=== PATIENT | male | born 1950 | race Caucasian/White ===

== ENCOUNTER 2017-07-21 20:34 | Emergency (ER) | payer MEDICARE, OTHER ==
[2017-07-21 21:29] LABS: BASOPHILS 0.5 % (0-2); EOSINOPHILS 2.3 % (0-7); HEMATOCRIT 44.4 % (42.0-54.0); HEMOGLOBIN 14.9 g/dL (13.5-17.5); IMMATURE GRANULOCYTES 0.2 % (0-5); LYMPHOCYTES 27.7 % (15-50); MCH 29.2 pg (26.0-34.0); MCHC 33.6 g/dL (31.0-37.0); MCV 87.1 fL (80.0-100.0); MONOCYTES 12.5 % (2-11); NEUTROPHILS 56.8 % (40-80); PLATELET COUNT 218 10x3/uL (130-400); RDW 12.7 % (11.5-14.5); WBC 6.1 10x3/uL (4.8-10.8)
[2017-07-21 21:43] LABS: ALBUMIN 3.6 g/dL (3.4-5.0); ANION GAP 13.9 mmol/L (8-16); BILIRUBIN - TOTAL 0.29 mg/dL (0.2-1.3); CALCIUM 8.7 mg/dL (8.5-10.1); CARBON DIOXIDE 24.9 mmol/L (21.0-32.0); CREATININE - SERUM 1.5 mg/dL (0.6-1.3); POTASSIUM - SERUM 3.8 mmol/L (3.5-5.1); PROTEIN - SERUM 7.2 g/dL (6.4-8.2)
== END 2017-07-21 22:08 | disposition home or self-care (01) ==
LOC: D.ER 20:34
PROVIDERS: Physician Assistant Medical
DX: S50.862A Insect bite (nonvenomous) of left forearm, initial encounter (principal); W57.XXXA Bitten or stung by nonvenomous insect and other nonvenomous arthropods, initial encounter; Y93.89 Activity, other specified; Y92.029 Unspecified place in mobile home as the place of occurrence of the external cause; I10 Essential (primary) hypertension; N40.0 Benign prostatic hyperplasia without lower urinary tract symptoms

== ENCOUNTER 2017-10-23 10:08 | Day surgery (SDC) | payer MEDICARE, OTHER ==
--- NOTE | ~2017-10-23 | OP ---
PATIENT NAME: DEIDRE VILLAGOMEZ MEDICAL RECORD: [id number] :48 LOCATION:D.OPS ADMISSION DATE: SURGEON: GISELA ALBERT MD DATE OF OPERATION: 10/23/2017 PREOPERATIVE DIAGNOSIS: Suspicious hepatic flexure polyps times 2. POSTOPERATIVE DIAGNOSIS: Suspicious hepatic flexure polyps times 2. PROCEDURES: 1. Total colonoscopy to cecum. 2. Colonic polypectomies times 2 utilizing the argon plasma singing teacher, which is a radiofrequency type of ablation of a benign colonic process. SURGEON: Gisela Albert MD HAM PUMPER: None. BLOOD LOSS: Minimal. ANESTHESIA: General. DATE OF PROCEDURE: 10/23/2017 The risks, possible complications, and alternatives to the procedure were explained to the patient. He elects to proceed. OPERATIVE COURSE: The patient was conveyed to the operating room electively on 10/23/2017. General anesthesia was induced by the anesthesia staff. The patient was placed in the Bowser position. A digital rectal examination was performed. A colonoscope was inserted through the anus. It was easily advanced to the cecum. Upon withdrawal, I irrigated and aspirated extensively. The prep was inadequate. Two polyps were noted at the hepatic flexure. The proximal most polyp had a clip within the polyp that had been placed for hemostasis. Multiple cold biopsies of both polyps were performed. I then ablated the polypoid base with the argon plasma singing teacher. I am particularly concerned about the proximal most polyp as it had a very firm center and may represent a malignancy. I then slowly withdrew the endoscope. The pullback was greater than an 18-minute pullback. I dragged the folds. A retroflexed view was obtained in the rectum. I then unretroflexed the scope and removed it under direct vision. I will see the patient in my office in 2-3 weeks. If there is no evidence of malignancy, I will plan for the next colonoscopy with the argon plasma singing teacher to take place in 1 year. TRANSINT:[id number] Voice Confirmation ID: [id number] DOCUMENT ID: [id number] OPERATIVE REPORT [id number] DEIDRE VILLAGOMEZ GISELA ALBERT MD at 1607 CC: BLANCHE BUENO MD and SOLO VEGA DO [id number] DICTATION DATE: 10/23/17 1620 DRY END TESTER: 10/23/17 1935 [facility] 10/23/17 [facility] [address] [place] [address]
[2017-10-23 11:53] LABS: HEMATOCRIT 47.1 % (42.0-54.0); HEMOGLOBIN 16.2 g/dL (13.5-17.5); MCH 29.1 pg (26.0-34.0); MCHC 34.4 g/dL (31.0-37.0); MCV 84.7 fL (80.0-100.0); MEAN PLATELET VOLUME 7.9 fL (7.4-10.4); RBC 5.56 10x6/uL (4.20-6.10); RDW 13.3 % (11.5-14.5); WBC 8.3 10x3/uL (4.8-10.8)
[2017-10-23 13:49] VITALS: BP 135/82; BMI 26.5
[2017-10-23] MEDS ORDERED: FLOMAX0.4 MG PO (14:05)
[2017-10-23] MEDS ORDERED: LEVOTHYROXINE100 MCG PO (14:05)
[2017-10-23] MEDS ORDERED: NORVASC10 MG PO (14:06)
[2017-10-23] MEDS ORDERED: LOPID600 MG PO (14:06)
[2017-10-23] MEDS ORDERED: FLUTICASONE PRO16 GM NASAL (14:06)
[2017-10-23] MEDS ORDERED: LOTENSIN40 MG PO (14:07)
[2017-10-23] MEDS ORDERED: TEMAZEPAM30 MG PO (14:07)
== END 2017-10-23 17:40 | disposition home or self-care (01) ==
LOC: D.OPS 10:08 → D.PAN 12:15 → D.OPS 12:30
PROVIDERS: Anesthesiology
DX: D12.3 Benign neoplasm of transverse colon (principal); Z01.812 Encounter for preprocedural laboratory examination

== ENCOUNTER 2018-06-29 21:11 | Outpatient (CLI) | payer MEDICARE, OTHER ==
[~2018-06-29] VITALS: Ht 180.3 cm; Wt 93.8 kg
[2018-06-29] VITALS (8 sets, daily range): BP systolic 102–171; BP diastolic 62–88
--- NOTE | ~2018-06-29 | HEMODYNAMI ---
PATIENT:DEIDRE VILLAGOMEZ MEDICAL RECORD: [id number] : 48 LOCATION:[place] [address] ADMISSION DATE: 06/30/18 Generatedon:06/30/201811:13 Patient name: DEIDRE VILLAGOMEZ Patient #: [id number] SSN: : 1950 Date of study: 06/30/2018 Page: Of Hemodynamic Procedure Report Patient Data Patient Demographics Procedure consent was obtained First Name: DEIDRE Gender: Male Last Name: DAHLIA : 1950 Middle Initial: T Age: 68 year(s) Patient #: [id number] Race: Unknown Additional ID: [id number] Contact details Address: [address] State: [place] City: [place] Zip code: [address] Past Medical History Allergies: No known allergies Admission Admission Data Admission Date: 06/30/2018 Admission Time: 0:42 Admit Source: Other Room #: [facility] Procedure Procedure Types Cath Procedure Diagnostic Procedure LHC LH w/Coronaries Sedation Charges Moderate Sedation up to 15 minutes PCI Procedure Coronary Stent Coronary Stent Initial Procedure Description Procedure Date Procedure Date: 06/30/2018 Procedure Start Time: 10:51 Procedure End Time: 11:12 Procedure Staff Name Function Abhijit Yeung MD Performing Physician Jonathan Morris RT Monitor Rena Rajput RT Scrub Rowena Hernandez RN Nurse Deep Locke RN Computer Assistant Procedure Data Cath Procedure Fluoroscopy Diagnostic fluoroscopy Total fluoroscopy Time: 6.4 time: 6.4 min min Diagnostic fluoroscopy Total fluoroscopy dose: 839 dose: 839 mGy mGy Contrast Material Contrast Material Type Amount (ml) Isovue 300 117 Entry Location Entry Primary Successful Side Size Upsize Upsize Entry Closure Peña ccessful Closure Location (Fr) 1 (Fr) 2 (Fr) Remarks Device Remarks Radial Right 6 Fr Mechanical artery Short Compression Estimated blood loss: 10 ml Diagnostic catheters Device Type Used For End Catheter Placement DIAGNOSTIC [place] 110cm 5 Procedure Fr catheter (010093) Procedure Complications No complications Procedure Medications Medication Administration Route Dosage 0.9% NaCl I.V. 100 ml/hr Oxygen etCO2 Nasal cannula 2 l/min Lidocaine 2% added to field 20 Heparin Flush Bag added to field 2 bags (1000units/500ml NS) Radial Cocktail added to field 1 syringe (Verapomil 2mg/Nitro 400mcg/Heparin 1500units) Versed I.V. 2 mg Fentanyl I.V. 50 mcg Versed I.V. 2 mg Fentanyl I.V. 50 mcg Heparin Bolus I.V. 4000 units Versed I.V. 1 mg Plavix P.O. 75 mg Hemodynamics Rest Heart Rate: 75 (bpm) Snapshots Pre Cath Intra NCS Post Cath Vital Signs Time Heart Resp SPO2 etCO2 NIBP (mmHg) Rhythm Pain Sedation Rate (ipm) (%) (mmHg) Status Level (bpm) 10:22:02 86 16 97 34 155/104(135) NSR 0 (11) 10(A) , No pain 10:26:30 90 15 98 36 168/100(126) NSR 0 (11) 10(A) , No pain 10:30:48 77 12 97 33.5 145/88(120) NSR 0 (11) 10(A) , No pain 10:35:10 69 16 96 32.7 129/83(107) NSR 0 (11) 10(A) , No pain 10:39:26 76 16 95 26 134/81(103) NSR 0 (11) 10(A) , No pain 10:43:39 71 14 97 27.5 118/80(102) NSR 0 (11) 10(A) , No pain 10:47:55 74 14 96 27.6 131/79(105) NSR 0 (11) 10(A) , No pain 10:52:17 72 14 95 32 133/74(115) NSR 0 (11) 10(A) , No pain 10:56:28 76 15 96 33.5 97/69(89) NSR 0 (11) 10(A) , No pain 11:00:34 80 15 97 31.2 114/73(91) NSR 0 (11) 10(A) , No pain 11:04:46 78 16 97 29 117/80(103) NSR 0 (11) 10(A) , No pain 11:09:00 78 15 95 31.2 121/76(97) NSR 0 (11) 10(A) , No pain Medications Time Medication Route Dose Verified Delivered Reason Not es Effectiveness by by 10:18:25 0.9% NaCl I.V. 100 Abhijit Rowena used for ml/hr Gamal Hernandez him tech 10:18:32 Oxygen etCO2 2 l/min Abhijit Rowena used for Nasal Gamal Hernandez procedure cannula RN 10:18:38 Lidocaine 2% added 20ml Abhijit Abhijit for local to vial Gamal Yeung MD anesthetic field 10:18:44 Heparin Flush added 2 bags Abhijit Abhijit used for Bag to Gamal Yeung MD procedure (1000units/500ml field NS) 10:24:43 Radial Cocktail added 1 Abhijit Abhijit used for (Verapomil to syringe Gamal Yeung MD procedure 2mg/Nitro field 400mcg/Heparin 1500units) 10:45:48 Versed I.V. 2 mg Abhijit Rowena for sedation Gamal Hernandez RN 10:45:54 Fentanyl I.V. 50 mcg Abhijit Rowena for sedation Gamal Hernandez RN 10:51:58 Versed I.V. 2 mg Abhijit Rowena for sedation Gamal Hernandez RN 10:52:03 Fentanyl I.V. 50 mcg Abhijit Rowena for sedation Gamal Hernandez RN 10:57:16 Heparin Bolus I.V. 4000 Abhijit Rowena for juan miguel ified units Gamal Hernandez anticoagulation with Dr. ANGELES Yeung 11:00:27 Versed I.V. 1 mg Abhijit Rowena for sedation Gamal Hernandez RN 11:05:35 Plavix P.O. 75 mg Abhijit Rowena for Gamal Hernandez antiplatelet RN therapy Procedure Log Time Note 10:12:11 Informed consent obtained and on chart 10:12:14 Admit Source: Other 10:12:32 Diagnostic Cath status Elective 10:12:33 Deep Locke RN sent for patient. Start room use. 10:12:34 Time tracking: Regular hours (M-F 7:00 - 5:00) 10:12:38 Plan of Care:Hemodynamics will remain stable., Cardiac rhythm will remain stable., Comfort level will be maintained., Respiratory function will remain adequate., Patient/ family verbilizes understanding of procedure., Procedure tolerated without complication., Recovers from procedure without complications.. 10:13:47 H&P Date Dictated: 06/30/2018 Within 30 days and on chart.. 10:15:06 Patient received from Med II to CCL 1 Alert and oriented. Tansferred to table in Supine position. 10:15:07 Warm blankets applied, and katarzyna hugger turned on for patient comfort. 10:15:08 Correct patient and procedure confirmed by team. 10:15:09 ECG and BP/O2 sat monitors applied to patient. 10:18:25 0.9% NaCl 100 ml/hr I.V. was administered by Rowena Hernandez RN; used for procedure; 10:18:32 Oxygen 2 l/min etCO2 Nasal cannula was administered by Rowena Hernandez RN; used for procedure; 10:18:38 Lidocaine 2% 20ml vial added to field was administered by Abhijit Yeung MD; for local anesthetic; 10:18:44 Heparin Flush Bag (1000units/500ml NS) 2 bags added to field was administered by Abhijit Yeung MD; used for procedure; 10:20:37 Vital chart was started 10:22:32 Full Disclosure recording started 10:24:43 Radial Cocktail (Verapomil 2mg/Nitro 400mcg/Heparin 1500units) 1 syringe added to field was administered by Abhijit Yeung MD; used for procedure; 10:33:09 Baseline sample Acquired. 10:33:12 Rhythm: sinus rhythm 10:33:47 Pre-procedure instructions explained to patient. 10:33:47 Pre-op teaching completed and patient verbalized understanding. 10:33:49 Family in patients room. 10:33:51 Patient NPO since Midnight. 10:33:56 Patient allergic to No known allergies 10:33:58 Is the patient allergic to Iodine/contrast media? No. 10:33:59 Is patient on blood thinner?Yes 10:34:01 ACC The patient was administered the following blood thiners within the last 24 hours: ACCPlavix 10:34:03 Patient diabetic? No. 10:34:06 Previous problem with sedation/anesthesia? No ? 10:34:07 Snore? Yes 10:34:10 Sleep apnea? Yes 10:34:10 Deviated septum? No 10:34:11 Opens mouth fully? Yes 10:34:12 Sticks out tongue? Yes 10:34:14 Airway obstruction? No ? 10:34:16 Dentures? No ? 10:34:19 Pre procedure: right dorsailis pedis pulse 2+ Normal; easily identifiable; not easily obliterated 10:34:21 Modified Bart's test Ulnar < 7 seconds 10:34:22 Patient pain scale 0/10 ?. 10:34:27 IV patent on arrival in left antecubital with 0.9% NaCl at [facility]. 10:35:00 Lab Result : BUN 23 mg/dl 10:35:00 Lab Result : Hemoglobin 15.4 g/dl 10:35:00 Lab Result : Creatinine 0.9 mg/dl 10:35:00 Lab Result : Hematocrit 44.3 % 10:35:02 Lab results completed and on chart. 10:35:05 Right Radial & Right Groin area was prepped with chlora-prep and draped in sterile fashion 10:35:06 Alarms reviewed by R. N. 10:35:06 Sharps counted by scrub and verified by R.N. 10:35:09 Use device set Radial Dx or PCI 10:35:10 ACIST Syringe (67169) opened to sterile field. 10:35:10 Medline Cath Pack ([id number]) opened to sterile field. 10:35:10 Bag Decanter (2002S) opened to sterile field. 10:35:11 ACIST Hand Control (03898) opened to sterile field. 10:35:11 ACIST Manifold (97596) opened to sterile field. 10:35:12 Tegaderm 4 x 4 (1626W) opened to sterile field. 10:35:13 MBrace Wrist Support ([id number]) opened to sterile field. 10:35:15 DIAGNOSTIC WIRE .035 260cm J wire (490185) opened to sterile field. 10:35:16 NEEDLE Cook 21G 4cm Radial (W01883) opened to sterile field. 10:35:25 SHEATH 6FR Slender ([id number]) opened to sterile field. 10:39:06 Zero performed for pressure channel P1 10:45:27 Physician arrived 10:45:28 --------ALL STOP TIME OUT------ 10:45:28 Final Timeout: patient, procedure, and site verified with staff and physician. All members of the team are in agreement. 10:45:30 Right Radial & Right Groin site verified by team. 10:45:33 Physical assessment completed. ASA score P 2 - A patient with mild systemic disease as per Abhijit Yeung MD. 10:45:36 Sedation plan: IV Moderate Sedation Medication:Versed, Fentanyl 10:45:48 Versed 2 mg I.V. was administered by Rowena Hernandez RN; for sedation; 10:45:54 Fentanyl 50 mcg I.V. was administered by Rowena Hernandez RN; for sedation; 10:51:38 Procedure started. 10:51:42 Local anesthetic to right radial artery with Lidocaine 2% by Abhijit Yeung MD.INITIAL ACCESS ONLY 10:51:49 A 6 Fr Short sheath was inserted into the Right Radial artery 10:51:58 Versed 2 mg I.V. was administered by Rowena Hernandez RN; for sedation; 10:52:03 Fentanyl 50 mcg I.V. was administered by Rowena Hernandez RN; for sedation; 10:52:29 A DIAGNOSTIC [place] 110cm 5 Fr catheter (177589) was advanced over the wire and used for Procedure. 10:54:02 GLIDE WIRE Angled Super Stiff 180cm (QM7972) opened to sterile field. 10:54:23 glide wire wire advanced. 10:54:26 Wire removed. 10:54:47 LV gram done using GUTIERREZ 10:54:50 Injector settings: Ml/sec: 5, Volume: 15, 10:54:51 LV hemodynamics recorded. 10:54:57 EF : 60 % 10:55:04 LCA angiography performed. 10:56:45 RCA angiography performed. 10:57:16 Heparin Bolus 4000 units I.V. was administered by Rowena Hernandez RN; for anticoagulation; verified with Dr. Yeung 10:57:28 INFLATOR Merit BasixCompak (PU8396) opened to sterile field. 10:57:28 CHOICE PT Extra Support 182cm wire ([id number]) opened to sterile field. 10:59:13 GUIDE 6FR XBLAD 3.5 catheter ([id number]) opened to sterile field. 10:59:18 Catheter removed. 10:59:24 6 Fr xblad 3.5 guide catheter was inserted over the wire 11:00:10 Guide Catheter removed. unable to cannulate vessel. 11:00:16 GUIDE 6FR XBLAD 4.0 catheter (44115262) opened to sterile field. 11:00:24 6 Fr xblad 4 guide catheter was inserted over the wire 11:00:27 Versed 1 mg I.V. was administered by Rowena Hernandez RN; for sedation; 11:01:03 choice pt es wire advanced. 11:01:17 Wire advanced across lesion. 11:02:20 Inflate balloon Inflation number: 1 A EUPHORA 2.5 x 30 Balloon ([id number]) was prepped and advanced across the Prox LAD, then inflated to 15 INDY for 0:10 (min:sec). 11:02:37 Inflation number: 2 The EUPHORA 2.5 x 30 Balloon ([id number]) was reinflated across the Prox LAD, to 15 INDY for 0:10 (min:sec). 11::46 Inflation number: 3 The EUPHORA 2.5 x 30 Balloon ([id number]) was reinflated across the Prox LAD, to 17 INDY for 0:10 (min:sec). 11:04:00 Balloon removed over the wire. 11:04:32 Place stent Inflation Number: 1 A ELENO RX 2.5 x 34 stent ([id number]) was prepped and advanced across the Prox LAD1. The stent was deployed at 15 INDY for 0:10 (min:sec). 11:05:18 Stent catheter was removed intact over wire. 11:05:35 Plavix 75 mg P.O. was administered by Rowena Hernandez RN; for antiplatelet therapy; 11:06:00 Place stent Inflation Number: 4 A ELENO RX 3.0 x 15 stent ([id number]) was prepped and advanced across the Prox LAD. The stent was deployed at 15 INDY for 0:10 (min:sec). 11:07:37 Stent catheter was removed intact over wire. 11:07:38 Wire removed. 11:07:39 Guide catheter removed. 11::46 TR BAND Standard ([id number]) opened to sterile field. 11:07:54 Sheath removed intact; hemostasis achieved with Mechanical Compression to the Right Radial artery. 11:07:55 Procedure ended.(Physican Out) 11:09:46 Fluoroscopy time 06.40 minutes. 11:09:51 Fluoroscopy dose: 839 mGy 11:09:51 Flurop Dose total: 839 11:09:57 Contrast amount:Isovue 300 117ml. 11:09:58 Sharps counted by scrub and verified by R.N. 11:10:01 Insertion/operative site no bleeding no hematoma. 11:10:08 Post right radial artery:stable, soft, clean and dry 11:10:11 Post Procedure Pulses reassessed and unchanged 11:10:13 Post-procedure physical assessment completed. ASA score P 2 - A patient with mild systemic disease as per Abhijit Yeung MD. 11:10:15 Post procedure rhythm: unchanged. 11:10:26 Estimated blood loss: 10 ml 11::28 Post procedure instruction explained to patient.Patient verbalizes understanding. 11:10:28 Patient needs reinforcement of post procedure teaching. 11:11:08 Procedure type changed to Cath procedure, Diagnostic procedure, LHC, LHC w/Coronaries, Sedation Charges, Moderate Sedation up to 15 minutes, PCI procedure, Coronary Stent, Coronary Stent Initial 11:11:54 Procedure and supply charges have been captured, reviewed, submitted and are correct. 11:11:56 Procedure Complication : No complications 11:11:58 Vital chart was stopped 11:11:59 See physician's report for complete and final results. 11:12:01 Report given to PCU. 11:12:10 Patient transfered to PCU with Stretcher. 11:12:13 Procedure ended. 11:12:13 Full Disclosure recording stopped 11:12:16 End room use (Document Last) Intervention Summary Intervention Notes Time ActionType Lesion and Equipment Used Action# Pressure Duration Attributes 11:02:20 Inflate Prox LAD EUPHORA 2.5 x 1 15 00:10 balloon 30 Balloon ([id number]) 11:02:37 Reinflate Prox LAD EUPHORA 2.5 x 2 15 00:10 balloon 30 Balloon ([id number]) 11:02:46 Reinflate Prox LAD EUPHORA 2.5 x 3 17 00:10 balloon 30 Balloon ([id number]) 11:04:32 Place stent Prox LAD1 ELENO RX 2.5 x 1 15 00:10 34 stent ([id number]) 11:06:00 Place stent Prox LAD ELENO RX 3.0 x 4 15 00:10 15 stent ([id number]) Device Usage Item Name Manufacture Quantity Catalog Number Hospital Part Current M inimal Lot# / Charge Number Stock Stock Serial# Code ACIST Syringe Acist 1 69468 398380 261302 100434 2 0 (86635) Medical Systems Inc Medline Cath Medline 1 [id number] 101161 47401 054688 5 Pack ([id number]) Bag Decanter Microtek 1 2001S 519750 72334 014805 5 (2001S) Medical Inc. ACIST Hand Acist 1 99552 690205 104411 846639 5 Control Medical (86316) Systems Inc ACIST Manifold Acist 1 55087 160279 837714 264103 5 (90877) Medical Systems Inc Tegaderm 4 x 4 3M 1 1626W 803175 205840 289483 5 (1626W) MBrace Wrist Advanced 1 140-0250-00 187166 63023 303822 5 Support Vascular (387373274) Dynamics DIAGNOSTIC St Say 1 973852 084200 987368 676707 3 0 WIRE .035 260cm J wire (452368) NEEDLE Cook Cook Medical 1 G09255 043732 048823 275663 5 21G 4cm Radial (E63048) SHEATH 6FR Terumo 1 [id number] 812132 115134 101137 4 0 Slender ([id number]) DIAGNOSTIC Terumo 1 40-9323 764320 046911 251326 5 [place] 110cm 5 Fr catheter (628223) GLIDE WIRE Terumo 1 OR0295 367259 363165 5 Angled Super Stiff 180cm (BG1125) INFLATOR Merit Merit 1 BP9347 111620 369465 780930 1 5 Article One Partners (XY1808) CHOICE PT Lincoln 1 [id number] 060269 118362 248333 5 Extra Support Scientific 182cm wire ([id number]) GUIDE 6FR Cardinal 1 44048348 333378 278349 452233 1 0 XBLAD 3.5 Health catheter (56315804) GUIDE 6FR Cardinal 1 02614373 453315 989943 499867 3 XBLAD 4.0 Health catheter (49282426) EUPHORA 2.5 x Medtronic 1 [id number] 468747 877784 828414 5 [id number] 30 Balloon (YXB1839T) ELENO RX 2.5 x Medtronic 1 [id number] 833154 4852590 422211 5 [id number] 34 stent ([id number]) ELENO RX 3.0 x Medtronic 1 [id number] 028425 6114185 281546 5 [id number] 15 stent ([id number]) TR BAND Terumo 1 [id number] 198579 051179 111298 4 0 Standard (EQQ52KEJ) Signature Audit Hankins Stage Time Signature Unsigned Intra-Procedure 06/30/2018 Jonathan Morris 11:13:52 AM RT(R) Signatures Monitor : Jonathan Morris RT Signature : Date : Time : [facility] [address] [place] [address]
--- NOTE | ~2018-06-29 | OP ---
PATIENT NAME: DEIDRE VILLAGOMEZ MEDICAL RECORD: [id number] :48 [facility]ATION[facility] ADMISSION DATE:06/30/18 SURGEON: DUSTIN PFEIFFER MD DATE OF OPERATION: 06/30/2018 PROCEDURES: 1. PTCA stent LAD. 2. Left heart catheterization. 3. Selective coronary angiography. 4. Left ventriculogram. INDICATION: Angina and coronary artery disease. PROCEDURE PERFORMED: After informed consent was obtained and after a detailed description of risks, benefits as well as alternative therapies, the patient elected to proceed with angiogram and angioplasty. The right radial area was prepped and draped in normal sterile fashion. Right radial artery was cannulated via modified Seldinger technique with placement of 6-Arabic sheath. All catheters exchanged through this sheath. FINDINGS: The left ventriculogram was performed in standard 30-degree GUTIERREZ view, reveals good cardiac wall motion throughout all segments. Overall ejection fraction estimated 60%. SELECTIVE CORONARY ANGIOGRAPHY: 1. Left main is with no significant angiographic disease. 2. Left anterior descending has a long area of 95% stenosis. 3. The left circumflex has moderate irregularities, but no flow-limiting stenosis. 4. Right coronary artery has 80+ percent stenosis in the proximal mid vessel. PTCA STENT OF THE LAD: The stents used were 2.5 x 38 and 3.0 x 15 both Ganesh stents. Result was 0% residual stenosis. OVERALL IMPRESSION: Successful percutaneous transluminal coronary angioplasty stent of the left anterior descending going from 95% initial stenosis to 0% residual. PLAN: For PTCA stent of the RCA in the near future. TRANSINT:[id number] Voice Confirmation ID: [id number] DOCUMENT ID: [id number] DUSTIN PFEIFFER MD at 1059 CC: [id number] DICTATION DATE: 06/30/18 1112 ETL PROGRAMMER: 06/30/18 1119 DIS IN 07/01/18 [place] [id number]
--- NOTE | ~2018-06-29 | MORECARE ---
CASE MANAGEMENT DISCHARGE SUMMARY PATIENT: DEIDRE VILLAGOMEZ UNIT: [id number] ADM DATE: 06/30/18 AGE: 68 : [birth year] SEX: M ROOM/BED: D.2120 AUTHOR: SCOTT GONSALEZ PHYSICIAN: REFERRING PHYSICIAN: DUSTIN PFEIFFER MD DATE OF SERVICE: 07/01/18 Discharge Plan Patient Name: DEIDRE VILLAGOMEZ [facility] [facility] 1950 Planned Disposition: Home Anticipated Discharge Date: 07/01/18 Discharge Date: Expected LOS: 1 Initial Reviewer: [email or web address] Initial Review Date: 07/01/2018 Generated: 07/01/18 9:17 am DCPIA - Discharge Planning Initial Assessment Updated by [email or web address]: Flora Ramesh on 07/01/18 8:15 am * Is the patient Alert and Oriented? Yes * How many steps to enter\exit or inside your home? * PCP DR. BUENO * Pharmacy [facility] * Preadmission Environment Home with Family * ADLs Independent * Equipment None * List name and contact numbers for known caregivers / representatives who currently or will assist patient after discharge: ORLANDO VILLAGOMEZ () [phone] * Verbal permission to speak to the caregivers and representatives has been obtained from the patient. Yes * Community resources currently utilized None * Additional services required to return to the preadmission environment? Yes * Can the patient safely return to the preadmission environment? Yes * Has this patient been hospitalized within the prior 30 days at any hospital? No Patient Name: DEIDRE VILLAGOMEZ Page [phone] at 0817 All edits/amendments must be made on the electronic document DICTATION DATE: 07/01/18815 EMERGENCY RESPONSE OFFICER: SASKIA 07/01/18815 RPT#: [id number] DC DATE: STATUS: ADM IN [facility] [address] [place] [address] END OF REPORT
--- NOTE | ~2018-06-29 | OP ---
PATIENT NAME: DEIDRE VILLAGOMEZ MEDICAL RECORD: [id number] :48 LOCATION:[facility] ADMISSION DATE:06/30/18 SURGEON: DUSITN PFEIFFER MD DATE OF OPERATION: 07/01/2018 PROCEDURES: 1. PTCA stent RCA. 2. Selective coronary angiography. INDICATION: Angina and coronary artery disease. PROCEDURE IN DETAIL: After informed consent was obtained and after a detailed description of the risks, benefits as well as alternative therapies, the patient elected to proceed with angiogram and angioplasty. The right femoral area was prepped and draped in normal sterile fashion. Right femoral artery was cannulated via modified Seldinger technique with placement of 6-Divehi sheath. All catheters exchanged through this sheath. FINDINGS: The right coronary artery has an 80% stenosis proximally. This was addressed with a 3.5 x 22 mm Fortine stent. Result was 0% residual stenosis. OVERALL IMPRESSION: Successful percutaneous transluminal coronary angioplasty stent of the right coronary artery going from 80% initial stenosis to 0% residual. TRANSINT:[id number] Voice Confirmation ID: [id number] DOCUMENT ID: [id number] DUSTIN PFEIFFER MD at 1059 CC: [id number] DICTATION DATE: 07/01/18 0857 DOUBLE BASS PLAYER: 07/01/18 0931 DIS IN 07/01/[address] [address]
--- NOTE | ~2018-06-29 | MORECARE ---
CASE MANAGEMENT DISCHARGE SUMMARY PATIENT: DEIDRE VILLAGOMEZ UNIT: [id number] ADM DATE: 06/30/18 AGE: 68 : 49 SEX: M ROOM/BED: D.CL01 AUTHOR: WALLACE,DOC PHYSICIAN: REFERRING PHYSICIAN: DUSTIN PFEIFFER MD DATE OF SERVICE: 07/07/18 Discharge Plan Patient Name: DEIDRE VILLAGOMEZ Facility: [facility]:[place] : 1950 Planned Disposition: Home Anticipated Discharge Date: 07/01/18 Discharge Date: 07/01/2018 Expected LOS: 1 Initial Reviewer: [email or web address] Initial Review Date: 07/01/2018 Generated: 07/07/18 3:17 pm Comments DCP- Discharge Planning Updated by [email or web address]: Flora Ramesh on 07/01/18 7:[address] Patient Name: DEIDRE VILLAGOMEZ Admission Status: ER Accout number: [id number] Admission Date: 06-30-2018 : 1950 Admission Diagnosis: Attending: SHA PFEIFFER Current LOS: 1 Anticipated DC Date: 07-01-2018 Planned Disposition: Home Primary Insurance: MEDICARE A & B Discharge Planning Comments: CM MET WITH PATIENT AND ([place]) REGARDING D/C NEEDS AND PLANS. PATIENT STATED TO TALK WITH HIS REGARDING PLAN. PATIENTS WILL DRIVE PATIENT HOME AT DISCHARGE (HOPING TO D/C TODAY) AND THERE ARE NO STEPS OR STAIRS AT PATIENTS HOME. PATIENT IS INDEPENDENT WITH HIS CARE AND HAS NO DME AT HOME. PATIENTS PCP IS DR. BUENO AND USES [facility] ON [address] PATIENT REFUSED HOME HEALTH AT THIS TIME. CM WILL CONTINUE TO FOLLOW PATIENT WITH D/C NEEDS AND PLANS. IMM SERVED. PCP DR. BUENO [facility] [address] [place] () [phone] Document Review Specialist: Flora Ramesh DCPIA - Discharge Planning Initial Assessment Updated by [email or web address]: Flora Ramesh on 07/01/18 8:15 am * Is the patient Alert and Oriented? Yes * How many steps to enter\exit or inside your home? * PCP DR. BUENO * Pharmacy [facility] ON [address] * Preadmission Environment Home with Family * ADLs Independent * Equipment None * List name and contact numbers for known caregivers / representatives who currently or will assist patient after discharge: [place] VILLAGOMEZ () [phone] * Verbal permission to speak to the caregivers and representatives has been obtained from the patient. Yes * Community resources currently utilized None * Additional services required to return to the preadmission environment? Yes * Can the patient safely return to the preadmission environment? Yes * Has this patient been hospitalized within the prior 30 days at any hospital? No Coverage Notice Reviewer: [id number] Ldiia Ramesh Notice Issued Date-Time: 07/01/2018 8:05 Notice Type: IM Discharge Notice Notice Delivered To: Family Member Relationship to Patient: Spouse Jewel Flat Surfacer Name: [place] Delivery Method: HAND - Hand Delivered Oneida Days: Prior Verbal Notification: Recipient Understood Notice: Yes Recipient Signature: Yes Med Rec Note Co-signed by Attending: Coverage Notice Comment: Last DP export: 07/01/18 7:24 a Patient Name: DEIDRE VILLAGOMEZ Page 08525 at 1417 All edits/amendments must be made on the electronic document DICTATION DATE: 07/07/181415 SHIPWRIGHT SUPERVISOR: SASKIA 07/07/18 141 RPT#: [id number] DC DATE:07/01/18 STATUS: DIS IN [facility] [address] [place] [address] END OF REPORT
--- NOTE | ~2018-06-29 | MORECARE ---
CASE MANAGEMENT DISCHARGE SUMMARY PATIENT: DEIDRE VILLAGOMEZ UNIT: [id number] ADM DATE: 06/30/18 AGE: 68 : 49 SEX: M ROOM/BED: D.2120 AUTHOR: WALLACE,DOC PHYSICIAN: REFERRING PHYSICIAN: DUSTIN PFEIFFER MD DATE OF SERVICE: 07/01/18 Discharge Plan Patient Name: DEIDRE VILLAGOMEZ Facility: [facility]:[place] : 1950 Planned Disposition: Home Anticipated Discharge Date: 07/01/18 Discharge Date: Expected LOS: 1 Initial Reviewer: [email or web address] Initial Review Date: 07/01/2018 Generated: 07/01/18 9:24 am Comments DCP- Discharge Planning Updated by [email or web address]: Flora Ramesh on 07/01/18 7:[address] Patient Name: DEIDRE VILLAGOMEZ Admission Status: ER Accout number: [id number] Admission Date: 06-30-2018 : 1950 Admission Diagnosis: Attending: SHA PFEIFFER Current LOS: 1 Anticipated DC Date: 07-01-2018 Planned Disposition: Home Primary Insurance: MEDICARE A & B Discharge Planning Comments: CM MET WITH PATIENT AND ([place]) REGARDING D/C NEEDS AND PLANS. PATIENT STATED TO TALK WITH HIS REGARDING PLAN. PATIENTS WILL DRIVE PATIENT HOME AT DISCHARGE (HOPING TO D/C TODAY) AND THERE ARE NO STEPS OR STAIRS AT PATIENTS HOME. PATIENT IS INDEPENDENT WITH HIS CARE AND HAS NO DME AT HOME. PATIENTS PCP IS DR. BUENO AND USES [facility] ON [address] PATIENT REFUSED HOME HEALTH AT THIS TIME. CM WILL CONTINUE TO FOLLOW PATIENT WITH D/C NEEDS AND PLANS. IMM SERVED. PCP DR. BUENO [facility] ON [address] [place] () [phone] Public Information Specialist: Flora Ramesh DCPIA - Discharge Planning Initial Assessment Updated by [email or web address]: Flora Ramesh on 07/01/18 8:15 am * Is the patient Alert and Oriented? Yes * How many steps to enter\exit or inside your home? * PCP DR. BUENO * Pharmacy [facility] [address] * Preadmission Environment Home with Family * ADLs Independent * Equipment None * List name and contact numbers for known caregivers / representatives who currently or will assist patient after discharge: [place] VILLAGOMEZ () [phone] * Verbal permission to speak to the caregivers and representatives has been obtained from the patient. Yes * Community resources currently utilized None * Additional services required to return to the preadmission environment? Yes * Can the patient safely return to the preadmission environment? Yes * Has this patient been hospitalized within the prior 30 days at any hospital? No Coverage Notice Reviewer: [id number] Lidia Ramesh Notice Issued Date-Time: 07/01/2018 8:05 Notice Type: IM Discharge Notice Notice Delivered To: Family Member Relationship to Patient: Spouse Lineworker Name: [place] Delivery Method: HAND - Hand Delivered Oneida Days: Prior Verbal Notification: Recipient Understood Notice: Yes Recipient Signature: Yes Med Rec Note Co-signed by Attending: Coverage Notice Comment: Last DP export: 07/01/18 7:17 a Patient Name: DEIDRE VILLAGOMEZ Page 21156 at 0824 All edits/amendments must be made on the electronic document DICTATION DATE: 07/01/18823 PEARL DIGGER: SASKIA 07/01/18823 RPT#: [id number] DC DATE: STATUS: ADM IN [facility] [address] [place] [address] END OF REPORT
--- NOTE | ~2018-06-29 | HEMODYNAMI ---
PATIENT:DEIDRE VILLAGOMEZ MEDICAL RECORD: [id number] : [birth year] LOCATION:[place] [address] ADMISSION DATE: 06/30/18 Generatedon:07/01/20188:54 Patient name: DEIDRE VILLAGOMEZ Patient #: [id number] SSN: : 1950 Date of study: 07/01/2018 Page: Of Hemodynamic Procedure Report Patient Data Patient Demographics Procedure consent was obtained First Name: DEIDRE Gender: Male Last Name: DAHLIA : 1950 Middle Initial: T Age: 68 year(s) Patient #: [id number] Race: Unknown Additional ID: [id number] Contact details Address: [facility] [address] [facility] State: [place] City: [place] Zip code: [address] Past Medical History Allergies: No known allergies Admission Admission Data Admission Date: 06/30/2018 Admission Time: 0:42 Admit Source: Other Room #: D.2120 Lab Results Lab Result Date: 06/30/2018 Lab Result Time: 21:32 Biochemistry Name Units Result Min Max BUN mg/dl 23 --(----)-* 7 18 Creatinine mg/dl 0.9 --(-*--)-- 0.6 1.3 CBC Name Units Result Min Max Hematocrit % 44.3 --(*---)-- 42 54 Hemoglobin g/dl 15.4 --(-*--)-- 13.5 17.5 Procedure Procedure Types Cath Procedure PCI Procedure Coronary Stent Coronary Stent Initial Procedure Description Procedure Date Procedure Date: 07/01/2018 Procedure Start Time: 8:44 Procedure End Time: 8:52 Procedure Staff Name Function Abhijit Yeung MD Performing Physician Rena Rajput RT Monitor Rowena Hernandez RN Nurse Jonathan Morris RT Scrub Procedure Data Cath Procedure Fluoroscopy Diagnostic fluoroscopy Total fluoroscopy Time: 1.3 time: 1.3 min min Diagnostic fluoroscopy Total fluoroscopy dose: 128 dose: 128 mGy mGy Contrast Material Contrast Material Type Amount (ml) Isovue 300 30 Entry Location Entry Primary Successful Side Size Upsize Upsize Entry Closure Succes sful Closure Location (Fr) 1 (Fr) 2 (Fr) Remarks Device Remarks Femoral Right 6 Fr Exoseal artery Short Estimated blood loss: 5 ml Procedure Complications No complications Procedure Medications Medication Administration Route Dosage 0.9% NaCl I.V. 100 ml/hr Oxygen etCO2 Nasal cannula 2 l/min Lidocaine 2% added to field 20 Heparin Flush Bag added to field 2 bags (1000units/500ml NS) Versed I.V. 2 mg Fentanyl I.V. 50 mcg Heparin Bolus I.V. 4000 units Versed I.V. 2 mg Fentanyl I.V. 25 mcg Hemodynamics Rest Heart Rate: 76 (bpm) Snapshots Pre Cath Intra NCS Post Cath Vital Signs Time Heart Resp SPO2 etCO2 NIBP (mmHg) Rhythm Pain Sedation Rate (ipm) (%) (mmHg) Status Level (bpm) 8:24:55 77 15 97 34.5 146/95(112) NSR 0 (11) 10(A) , No pain 8:29:13 70 14 98 36.7 127/75(104) NSR 0 (11) 10(A) , No pain 8:33:29 68 12 99 27 127/82(104) NSR 0 (11) 10(A) , No pain 8:37:48 72 29 99 33 120/78(95) NSR 0 (11) 10(A) , No pain 8:41:59 72 27 98 32 123/79(102) NSR 0 (11) 10(A) , No pain 8:46:11 71 21 98 33.8 124/84(99) NSR 0 (11) 10(A) , No pain 8:50:29 73 14 98 31.5 116/70(87) NSR 0 (11) 10(A) , No pain Medications Time Medication Route Dose Verified Delivered Reason Notes Effectiveness by by 8:26:58 0.9% NaCl I.V. 100 Abhijit Rowena used for ml/hr Gamal Hernandez shoe packer 8:27:07 Oxygen etCO2 2 Abhijit Rowena used for Nasal l/min Gamal Hernandez procedure cannula RN 8:27:12 Lidocaine 2% added 20ml Abhijit Lacey for local to vial Gamal Yeung MD anesthetic field 8:27:17 Heparin Flush added 2 Abhijit Lacey used for Bag to bags Gamal Yeung MD procedure (1000units/500ml field NS) 8:41:40 Versed I.V. 2 mg Abhijit Rowena for sedation Gamal Hernandez RN 8:41:55 Fentanyl I.V. 50 Abhijit Rowena for sedation mcg Gamal Hernandez RN 8:46:05 Heparin Bolus I.V. 4000 Abhijit Rowena for verifi ed units Gamal Hernandez anticoagulation with Dr. ANGELES Yeung 8:48:18 Versed I.V. 2 mg Abhijit Rowena for sedation verifi ed Gamal Hernandez with Dr. ANGELES Yeung 8:48:22 Fentanyl I.V. 25 Abhijit Rowena for sedation verifi ed mcg Gamal Hernandez with Dr. ANGELES Yeung Procedure Log Time Note 8:02:52 Rena Counts RT(R) sent for patient. Start room use. 8:02:59 Time tracking: Regular hours (M-F 7:00 - 5:00) 8:03:02 Plan of Care:Hemodynamics will remain stable., Cardiac rhythm will remain stable., Comfort level will be maintained., Respiratory function will remain adequate., Patient/ family verbilizes understanding of procedure., Procedure tolerated without complication., Recovers from procedure without complications.. 8:23:11 Patient received from PCU to CCL 1 Alert and oriented. Tansferred to table in Supine position. 8:23:12 Warm blankets applied, and katarzyna hugger turned on for patient comfort. 8:23:13 Correct patient and procedure confirmed by team. 8:23:14 Signed procedure consent form obtained from patient. 8:23:15 ECG and BP/O2 sat monitors applied to patient. 8:23:15 Full Disclosure recording started 8:23:36 Vital chart was started 8:24:25 H&P Date Dictated: 06/30/2018 Within 30 days and on chart.. 8:24:30 Rhythm: sinus rhythm 8:24:35 Pre-procedure instructions explained to patient. 8:24:35 Pre-op teaching completed and patient verbalized understanding. 8:24:37 Family in waiting room. 8:24:39 Patient NPO since Midnight. 8:24:45 Patient allergic to No known allergies 8:24:47 Is the patient allergic to Iodine/contrast media? No. 8:24:49 Is patient on blood thinner?Yes 8:24:51 ACC The patient was administered the following blood thiners within the last 24 hours: ACCAspirin, ACCPlavix 8:24:59 Patient diabetic? No. 8:25:05 Previous problem with sedation/anesthesia? No ? 8:25:06 Snore? Yes 8:25:06 Sleep apnea? Yes 8:25:07 Deviated septum? No 8:25:09 Opens mouth fully? No 8:25:10 Sticks out tongue? Yes 8:25:11 Airway obstruction? No ? 8:25:13 Dentures? No ? 8:25:16 Pre procedure: right dorsailis pedis pulse 2+ Normal; easily identifiable; not easily obliterated 8:25:20 Patient pain scale 0/10 ?. 8:25:31 IV patent on arrival in left forearm with 0.9% NaCl at [facility]. 8:25:32 Lab results completed and on chart. 8:25:35 Right groin area was prepped with chlora-prep and draped in sterile fashion 8:25:36 Alarms reviewed by R. N. 8:25:36 Sharps counted by scrub and verified by R.N. 8:26:58 0.9% NaCl 100 ml/hr I.V. was administered by Rowena Hernandez RN; used for procedure; 8:27:07 Oxygen 2 l/min etCO2 Nasal cannula was administered by Rowena Hernandez RN; used for procedure; 8:27:12 Lidocaine 2% 20ml vial added to field was administered by Abhijit Yeung MD; for local anesthetic; 8:27:17 Heparin Flush Bag (1000units/500ml NS) 2 bags added to field was administered by Abhijit Yeung MD; used for procedure; 8:28:38 Use device set CATH PACK 8:28:40 Use device set TAUTH PCI 8:28:49 SHEATH 6FR Elora (JAH223) opened to sterile field. 8:28:50 Tegaderm 4 x 4 (1626W) opened to sterile field. 8:28:54 ACIST Syringe (15338) opened to sterile field. 8:28:55 ACIST Hand Control (75458) opened to sterile field. 8:28:55 ACIST Manifold (83012) opened to sterile field. 8:28:56 Medline Cath Pack ([id number]) opened to sterile field. 8:28:57 Bag Decanter (2002) opened to sterile field. 8:28:58 DIAGNOSTIC WIRE .035 260cm J wire (525236) opened to sterile field. 8:28:58 INFLATOR Merit EtelvinaCompak (XN4431) opened to sterile field. 8:29:00 CHOICE PT Extra Support 182cm wire ([id number]) opened to sterile field. 8:30:49 Baseline sample Acquired. 8:31:57 Physician paged 8:34:00 Zero performed for pressure channel P1 8:40:39 Final Timeout: patient, procedure, and site verified with staff and physician. All members of the team are in agreement. 8:40:42 Right groin site verified by team. 8:40:44 Physical assessment completed. ASA score P 2 - A patient with mild systemic disease as per Abhijit Yeung MD. 8:40:47 Sedation plan: IV Moderate Sedation Medication:Versed, Fentanyl 8:41:40 Versed 2 mg I.V. was administered by Rowena Hernandez RN; for sedation; 8:41:55 Fentanyl 50 mcg I.V. was administered by Rowena Hernandez RN; for sedation; 8:42:55 GUIDE 6FR MB 1 catheter (LA6MB1) opened to sterile field. 8:44:54 Procedure started. 8:44:57 Local anesthetic to right femoral artery with Lidocaine 2% by Abhijit Yeung MD.INITIAL ACCESS ONLY 8:45:41 A 6 Fr Short sheath was inserted into the Right Femoral artery 8:45:54 6 Fr MB1 guide catheter was inserted over the wire 8:46:05 Heparin Bolus 4000 units I.V. was administered by Rowena Hernandez RN; for anticoagulation; verified with Dr. Yeung 8:47:11 CHOICE PT ES wire advanced. 8:48:18 Versed 2 mg I.V. was administered by Rowena Hernandez RN; for sedation; verified with Dr. Yeung 8:48:22 Fentanyl 25 mcg I.V. was administered by Rowena Hernandez RN; for sedation; verified with Dr. Yeung 8:48:35 Place stent Inflation Number: 1 A ELENO RX 3.5 x 22 stent ([id number]) was prepped and advanced across the Prox RCA. The stent was deployed at 15 INDY for 0:08 (min:sec). 8:48:47 Stent catheter was removed intact over wire. 8:48:47 Wire removed. 8:48:48 Guide catheter removed. 8:48:58 Sheath removed intact; hemostasis achieved with Exoseal to the Right Femoral artery. 8:49:02 EXOSEAL 6Fr (EX600) opened to sterile field. 8:49:06 Procedure ended.(Physican Out) 8:49:26 Fluoroscopy time 01.30 minutes. 8:49:31 Flurop Dose total: 128 8:49:31 Fluoroscopy dose: 128 mGy 8:49:38 Contrast amount:Isovue 300 30ml. 8:49:39 Sharps counted by scrub and verified by R.N. 8:49:41 Insertion/operative site no bleeding no hematoma. 8:49:44 Post-op/insertion site Right Femoral artery dressed using a 4 x 4 and Tegaderm. 8:49:56 Post right femoral artery:stable, clean and dry 8:49:58 Post Procedure Pulses reassessed and unchanged 8:50:00 Post-procedure physical assessment completed. ASA score P 2 - A patient with mild systemic disease as per Abhijit Yeung MD. 8:50:02 Post procedure rhythm: unchanged. 8:50:05 Estimated blood loss: 5 ml 8:50:07 Post procedure instruction explained to patient.Patient verbalizes understanding. 8:50:07 Patient needs reinforcement of post procedure teaching. 8:50:19 Procedure Complication : No complications 8:50:21 See physician's report for complete and final results. 8:50:41 Procedure and supply charges have been captured, reviewed, submitted and are correct. 8:52:19 Report given to Pre/Post Procedure Room. 8:52:27 Patient transfered to Pre/Post Procedure Room with Stretcher. 8:52:35 Procedure ended. 8:52:35 Full Disclosure recording stopped 8:52:38 End room use (Document Last) 8:54:12 Vital chart was stopped Intervention Summary Intervention Notes Time ActionType Lesion and Equipment Used Action# Pressure Duration Attributes 8:48:35 Place stent Prox RCA ELENO RX 3.5 x 1 15 00:08 22 stent ([id number]) Device Usage Item Name Manufacture Quantity Catalog Number Hospital Part Current M inimal Lot# / Charge Number Stock Stock Serial# Code SHEATH 6FR Terumo 1 [id number] 288858 [id number] 4 0 Elora (DDG256) Tegaderm 4 x 4 3M 1 1626W 713953 541646 932620 5 (1626W) ACIST Syringe Acist 1 08064 393041 189302 859162 2 0 (08723) Medical Systems Inc ACIST Hand Acist 1 60627 587662 163757 269145 5 Control Medical (23000) Systems Inc ACIST Manifold Acist 1 75835 001114 234171 897319 5 (97840) Medical Systems Inc Medline Cath Medline 1 [id number] 858423 39224 923940 5 Pack ([id number]) Bag Decanter Microtek 1 2002S 018629 88882 145954 5 (2001S) Medical Inc. DIAGNOSTIC St Say 1 799902 825168 959116 545857 3 0 WIRE .035 260cm J wire (818897) INFLATOR Merit Merit 1 PP2851 275878 465456 807292 1 5 NetShoes (KU4916) CHOICE PT Mesick 1 [id number] 820991 740704 151610 5 Extra Support Scientific 182cm wire ([id number]) GUIDE 6FR MB 1 Medtronic 1 LA6MB1 388114 96622 715784 1 catheter (LA6MB1) ELENO RX 3.5 x Medtronic 1 [id number] 028927 5149209 610529 5 [id number] 22 stent ([id number]) EXOSEAL 6Fr Cardinal 1 EX600 747583 481926 284169 1 0 (EX600) Health Signature Audit [place] Stage Time Signature Unsigned Intra-Procedure 07/01/2018 Rena 8:54:10 AM Counts RT(R) Signatures Monitor : Rena Signature : Counts RT Date : Time : [facility] [address] [facility] [place] [address]
--- NOTE | ~2018-06-29 | DS ---
PATIENT:DEIDRE VILLAGOMEZ :[birth year] MEDICAL RECORD: [id number] DISCHARGE SUMMARY ADMISSION DATE: 06/30/18 DISCHARGE DATE: 07/01/18 DISCHARGE DIAGNOSES: 1. Unstable angina. 2. Coronary artery disease. 3. Percutaneous transluminal coronary angioplasty and stent of the left anterior descending and right coronary artery this admission. HOSPITAL COURSE: Mr. Villagomez presents with unstable angina, found to have critical disease of the LAD and RCA, underwent successful PTCA and stent of both territories, was discharged home with the addition of aspirin and Plavix to his medical regimen. Will follow up with [facility] in 1 month. TRANSINT:[id number] Voice Confirmation ID: [id number] DOCUMENT ID: [id number] DUSTIN PFEIFFER MD at 1059 CC: [id number] DICTATION DATE: 07/01/18 0855 ACCOUNT DIRECTOR: 07/01/18 2315 DIS IN 07/01/18 [place] [address] [place] [address]
[~2018-06-29 21:11] MED LIST: FLOMAX0.4 MG PO; FLUTICASONE PRO16 GM NASAL; LEVOTHYROXINE100 MCG PO; LOPID600 MG PO; LOTENSIN40 MG PO; NORVASC10 MG PO; TEMAZEPAM30 MG PO
[2018-06-29 21:44] LABS: BASOPHILS 0.4 % (0-2); EOSINOPHILS 2.8 % (0-7); HEMATOCRIT 44.3 % (42.0-54.0); HEMOGLOBIN 15.4 g/dL (13.5-17.5); IMMATURE GRANULOCYTES 0.3 % (0-5); LYMPHOCYTES 26.5 % (15-50); MCH 29.8 pg (26.0-34.0); MCHC 34.8 g/dL (31.0-37.0); MCV 85.9 fL (80.0-100.0); MEAN PLATELET VOLUME 8.9 fL (7.4-10.4); MONOCYTES 12.1 % (2-11); NEUTROPHILS 57.9 % (40-80); PLATELET COUNT 208 10x3/uL (130-400); RBC 5.16 10x6/uL (4.20-6.10); RDW 12.8 % (11.5-14.5); WBC 7.3 10x3/uL (4.8-10.8)
[2018-06-29 21:46] LABS: APTT 24.5 SECONDS (22.8-39.4); INR 1.05 (0.85-1.17); PROTIME 13.3 SECONDS (11.6-15.0)
[2018-06-29 21:51] LABS: ALBUMIN 3.7 g/dL (3.4-5.0); ALKALINE PHOSPHATASE 68 U/L (46-116); ALT (SGPT) 38 U/L (10-68); BILIRUBIN - TOTAL 0.44 mg/dL (0.2-1.3); CALC OSMOLALITY 287 mosm/kg (275-300); CALCIUM 8.8 mg/dL (8.5-10.1); CARBON DIOXIDE 28.9 mmol/L (21.0-32.0); CHLORIDE - SERUM 105 mmol/L (98-107); CREATININE - SERUM 0.9 mg/dL (0.6-1.3); GLUCOSE 125 mg/dL (74-106); PROTEIN - SERUM 7.2 g/dL (6.4-8.2); SODIUM 142 mmol/L (136-145); UREA NITROGEN 23 mg/dL (7-18); eGFR NON AFRICAN AMERICAN 89 mL/min (90-120)
[2018-06-29 22:02] LABS: CKMB 1.1 U/L (0.0-3.6); CREATINE KINASE 105 UL (21-232); MAGNESIUM - SERUM 2.1 mg/dL (1.8-2.4)
[2018-06-29 22:05] LABS: TROPONIN-I < 0.017 ng/mL (0.000-0.060)
[2018-06-30 01:46] VITALS: BP 152/90
[2018-06-30 03:26] VITALS: BP 152/90; BMI 26.5
[2018-06-30 06:45] VITALS: BP 153/92
[2018-06-30 08:42] VITALS: BP 167/91
[2018-06-30 13:34] VITALS: Ht 180.3 cm; Wt 93.8 kg
[2018-06-30 16:54] VITALS: BP 121/85
[2018-06-30 21:01] VITALS: BP 118/82
[2018-07-01 01:29] VITALS: BP 151/84
[2018-07-01 05:44] VITALS: BP 152/83
[2018-07-01 08:13] VITALS: BP 152/92
[2018-07-01] MEDS ORDERED: BAYER CHEWABLE81 MG PO (08:59)
[2018-07-01] MEDS ORDERED: PLAVIX75 MG PO (08:59)
== END 2018-07-01 13:00 | disposition home or self-care (01) ==
LOC: OBSVTIME → D.OPS 21:11 → D.ER 21:11 → D.M2 06-30 00:42 → OBSVTIME 06-30 00:42 → D.ER 06-30 00:42 → D.M2 06-30 00:42 → D.ER 06-30 01:15 → EDSTATUS 07-01 08:00 → D.CLR 07-01 09:27 → D.M2 07-01 09:27 → D.CLR 07-01 13:00 → D.OPS 07-01 13:00
PROVIDERS: Family Medicine
DX: I25.110 Atherosclerotic heart disease of native coronary artery with unstable angina pectoris (principal)
CPT/HCPCS: 93458; C9600 ×2

== ENCOUNTER 2018-07-11 15:31 | Emergency (ER) | payer MEDICARE, OTHER ==
[~2018-07-11] VITALS: Ht 180.3 cm; Wt 92.3 kg
[~2018-07-11 15:31] MED LIST changes: +BAYER CHEWABLE81 MG PO; +PLAVIX75 MG PO
[2018-07-11 15:38] VITALS: Ht 180.3 cm; Wt 92.3 kg
[2018-07-11 16:02] LABS: BASOPHILS 0.4 % (0-2); EOSINOPHILS 2.7 % (0-7); HEMATOCRIT 43.5 % (42.0-54.0); IMMATURE GRANULOCYTES 0.4 % (0-5); LYMPHOCYTES 26.3 % (15-50); MCH 29.7 pg (26.0-34.0); MCHC 34.5 g/dL (31.0-37.0); MCV 86.1 fL (80.0-100.0); MEAN PLATELET VOLUME 8.5 fL (7.4-10.4); MONOCYTES 10.6 % (2-11); NEUTROPHILS 59.6 % (40-80); RBC 5.05 10x6/uL (4.20-6.10); RDW 12.7 % (11.5-14.5); WBC 7.7 10x3/uL (4.8-10.8)
[2018-07-11 16:07] LABS: ALBUMIN 3.9 g/dL (3.4-5.0); ALKALINE PHOSPHATASE 83 U/L (46-116); ALT (SGPT) 32 U/L (10-68); BILIRUBIN - TOTAL 0.39 mg/dL (0.2-1.3); CALC OSMOLALITY 280 mosm/kg (275-300); CARBON DIOXIDE 26.2 mmol/L (21.0-32.0); CHLORIDE - SERUM 106 mmol/L (98-107); CREATININE - SERUM 0.8 mg/dL (0.6-1.3); GLUCOSE 94 mg/dL (74-106); POTASSIUM - SERUM 4.1 mmol/L (3.5-5.1); PROTEIN - SERUM 7.5 g/dL (6.4-8.2); SODIUM 140 mmol/L (136-145); UREA NITROGEN 17 mg/dL (7-18); eGFR NON AFRICAN AMERICAN > 90 mL/min (90-120)
[2018-07-11 16:18] LABS: CKMB 1.5 U/L (0.0-3.6); CREATINE KINASE 122 UL (21-232)
[2018-07-11 16:20] LABS: TROPONIN-I < 0.017 ng/mL (0.000-0.060)
[2018-07-11 16:28] LABS: PLATELET COUNT 268 10x3/uL (130-400)
[2018-07-11] MEDS ORDERED: NITROSTAT0.4 MG SL (17:04)
[2018-07-11 17:23] VITALS: BP 136/84
== END 2018-07-11 17:23 | disposition home or self-care (01) ==
LOC: D.ER 15:31
PROVIDERS: Family Medicine
DX: R07.9 Chest pain, unspecified (principal)

== ENCOUNTER 2019-03-03 05:33 | Day surgery (SDC) | payer MEDICARE, OTHER ==
[~2019-03-03] VITALS: Ht 181.6 cm; Wt 92.3 kg
[~2019-03-03 05:33] MED LIST changes: +NITROSTAT0.4 MG SL
[2019-03-03 06:14] LABS: HEMATOCRIT 44.1 % (42.0-54.0); HEMOGLOBIN 15.4 g/dL (13.5-17.5); MCHC 34.9 g/dL (31.0-37.0); MEAN PLATELET VOLUME 8.9 fL (7.4-10.4); RBC 5.13 10x6/uL (4.20-6.10); RDW 12.9 % (11.5-14.5); WBC 7.5 10x3/uL (4.8-10.8)
[2019-03-03 06:31] LABS: ANION GAP 12.6 mmol/L (8-16); CALCIUM 8.7 mg/dL (8.5-10.1); CARBON DIOXIDE 28.1 mmol/L (21.0-32.0); CREATININE - SERUM 1.1 mg/dL (0.6-1.3); POTASSIUM - SERUM 3.7 mmol/L (3.5-5.1)
[2019-03-03] MEDS ORDERED: LIPITOR10 MG PO (06:33)
[2019-03-03 06:56] VITALS: Ht 181.6 cm; Wt 92.3 kg
--- NOTE | 2019-03-03 10:02 | NUR ---
[address] ALBERT. PROCEDURE FINDINGS DISCUSSED WITH PT & BROTHER. XRAY NOTIFIED PT IS BACK IN ROOM & READY FOR POST PROCEDURE ORDERED CXR. Rosa DEJESUS R.N. 1005 PORTABLE CHEST XRAY COMPLETED. RESULTS PENDING. Rosa DEJESUS R.N.
--- NOTE | 2019-03-03 11:08 | NUR ---
1105 IV DC'ED WITH CATH INTACT. 40ML LTC. PRESSURE TO SITE. NO BLEEDING NOTED. PT DRESSING. Rosa DEJESUS R.N. 1115 DRESSED, AWAKE & ALERT. GIVEN DISCHARGE INFORMATION INCLUDING MED REC WITH NOTE TO HOLD PALVIX FOR 5 DAYS. GIVEN ENDOSCOPY D/C INSTRUCTIONS, RTC APPT., RX: FLAGYL & SHEET LISTING NSAIDS TO AVOID. PT VOICES UNDERSTANDING. TO PRIVATE CAR PER WHEELCHAIR BY VOLUNTEER. HOME WITH BROTHER, IRA VILLAGOMEZ. Rosa DEJESUS R.N.
--- NOTE | 2019-03-03 16:46 | HP ---
PATIENT: DEIDRE VILLAGOMEZ MEDICAL RECORD: [id number] ACCOUNT: [id number] LOCATION:[place] : 48 ADMISSION DATE: 03/03/19 PCP: BLANCHE BUENO MD HISTORY AND PHYSICAL EXAMINATION HISTORY OF PRESENT ILLNESS: The patient has a history of hepatic flexure polyp. He has been on Plavix. He has been off Plavix for about 2 weeks. His senior web developer is Dr. Yeung. HOME MEDICATIONS: Please see the nursing list. SOCIAL HISTORY: He is a nonsmoker. PAST MEDICAL AND SURGICAL HISTORY: Coronary artery disease, hypertension, hyperlipidemia, history of 3 coronary stents, hypothyroidism, on replacement therapy. ALLERGIES: No known drug allergies. PHYSICAL EXAMINATION: GENERAL: The patient does not appear acutely ill. He does not appear chronically ill. VITAL SIGNS: Reviewed. EARS: External ears appear normal. EYES: Extraocular movements are intact. NECK: Trachea is midline. CHEST: No intercostal retractions. PULMONARY: Nonlabored and no stridor. 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 PLAN: Colonoscopy and polypectomy of any residual or persistent hepatic flexure polyp. TRANSINT:[id number] Voice Confirmation ID: [id number] DOCUMENT ID: [id number] GISELA ALBERT MD at 1646 CC: YOUNG TONY MD, BLANCHE BUENO MD and GUERITA [id number] DICTATION DATE: 03/03/19 0853 SNAILER: 03/03/19 0952 [facility] 03/03/19 [place] [address] [place] [address]
--- NOTE | 2019-03-06 16:06 | OP ---
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 POSTOPERATIVE DIAGNOSES: 1. 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 2. Mild sigmoid diverticulosis. PROCEDURES: 1. Total colonoscopy to cecum. 2. Endoscopic mucosal resection polypectomy of the hepatic flexure polyp. 3. Treatment of the area with the argon plasma geoscientist. 4. Placement of 3 endoscopic clips for hemostasis. SURGEON: Gisela Albert MD BRIDGE MANAGER: None. BLOOD LOSS: Minimal. ANESTHESIA: IV sedation. COMPLICATIONS: None. The risks, possible complications, and alternatives to the procedure were explained to the patient. He elects to proceed. Discussion specifically included, but was not limited to, bleeding requiring an emergency reoperation, infection, endoscopic perforation. ENDOSCOPIC COURSE: The patient was conveyed to the endoscopy suite electively on 03/03/2019. IV sedation was induced by the anesthesia staff. The patient was placed in the Bowser position. A digital rectal examination was performed. It revealed an enlarged prostate, which was symmetric and without nodules. A colonoscope was inserted through the anus. It was easily advanced to the cecum. The prep was adequate. I slowly withdrew the endoscope. I utilized normal imaging as well as narrow band imaging. The tattooed area was easily identifiable. I advanced an endoscopic sclerotherapy needle and injected epinephrine into the submucosal tissues around the polyp for postoperative hemostasis. We did not get a good lift of the polyp on the fold. Through the same sclerotherapy needle, I then injected Eleview. This was injected in 4 areas around the polypoid lesion. I then advanced an endoscopic snare. I performed the endoscopic mucosal resection polypectomy by snaring the top of the polyp up. This portion of the polyp was suctioned up into a polyp trap. Multiple cold endoscopic biopsies were obtained deep to this polypoid lesion on either side of it. I then utilized the argon plasma geoscientist utilizing the right colon setting in the forced mode to ablate any residual polypoid tissue. OPERATIVE REPORT [id number] DEIDRE VILLAGOMEZ For post-procedural hemostasis, 3 endoscopic clips were then applied. There was no further bleeding. I then slowly withdrew the endoscope. The pullback was greater than an 18-minute pullback. I dragged the folds. The endoscope was then withdrawn under direct vision. I will see the patient in my office in 2-3 weeks. I will plan for his next colonoscopy to take place in 1 year as this polyp has been recurrent. TRANSINT:[id number] Voice Confirmation ID: [id number] DOCUMENT ID: [id number] GISELA ALBERT MD at 1606 CC: YOUNG TONY MD, BLANCHE BUENO MD, MINOO HUTCHISON and [id number] DICTATION DATE: 03/03/19 0939 [employer] INSTALLER AUTOMOBILE: 03/03/19 1002 [facility] 03/03/19 [id number] [place] [address]
== END 2019-03-03 11:15 | disposition home or self-care (01) ==
LOC: D.OPS 05:33
PROVIDERS: Anesthesiology; ATTEND Surgery
DX: D12.3 Benign neoplasm of transverse colon (principal); K57.30 Diverticulosis of large intestine without perforation or abscess without bleeding; Z01.812 Encounter for preprocedural laboratory examination

== ENCOUNTER 2020-05-04 05:39 | Day surgery (SDC) | payer MEDICARE, OTHER ==
[~2020-05-04] VITALS: Ht 181.6 cm; Wt 85.0 kg
--- NOTE | ~2020-05-04 | HP ---
PATIENT: DEIDRE VILLAGOMEZ MEDICAL RECORD: [id number] ACCOUNT: [id number] LOCATION:[facility] : 48 ADMISSION DATE: 05/04/20 PCP: BLANCHE BUENO MD HISTORY AND PHYSICAL EXAMINATION HISTORY OF PRESENT ILLNESS: The patient has a history of recurrent hepatic flexure polyp. Last year, the patient underwent a repeat polypectomy and this revealed a tubulovillous adenoma with low-grade atypia. The patient had no abdominal pain. No hematochezia. Last year, during his endoscopy, the patient was found to have a tubulovillous adenoma. Some regrowth of a polypoid lesion on a fold and this was tattooed. He underwent an endoscopic mucosal resection of the recurrent hepatic flexure polyp. I also treated the area with the argon plasma estimator printing and 3 endoscopic clips were utilized for hemostasis. I injected Eleview during endoscopic mucosal resection. The patient is here to undergo a repeat colonoscopy. He is not on a blood thinner. PAST MEDICAL AND SURGICAL HISTORY: Sleep apnea and he does not use CPAP; coronary artery disease; hypertension; history of three coronary stents; hypothyroidism, on replacement therapy; history of hernia surgery; history of back surgery; history of knee surgery; history of hip surgery. REVIEW OF SYSTEMS: Negative for CVA or seizures. Negative for neurologic problems. ALLERGIES: No known drug allergies. HOME MEDICINES: Please see the nursing list. PHYSICAL EXAMINATION: GENERAL: The patient does not appear acutely ill. He does not appear chronically ill. VITAL SIGNS: Reviewed. EARS: External ears appear normal. EYES: Extraocular movements are intact. NECK: Trachea is midline. CHEST: No intercostal retractions. PULMONARY: Nonlabored, no stridor. IMPRESSION: Tubulovillous adenoma with low-grade atypia, recurrent. PLAN: Colonoscopy with polypectomy. TRANSINT:[id number] Voice Confirmation ID: [id number] DOCUMENT ID: [id number] HISTORY AND PHYSICAL [id number] DEIDRE VILLAGOMEZ ROBERT MD CC: BLANCHE BUENO MD, DUSTIN PFEIFFER MD and SOLO VEGA [id number] DICTATION DATE: 05/04/2024 GIN OPERATOR: 05/04/20 0849 [facility] 05/04/20 [id number] [place] [address]
--- NOTE | ~2020-05-04 | OP ---
PATIENT NAME: DEIDRE VILLAGOMEZ MEDICAL RECORD: [id number] :48 LOCATION:D.[facility] ADMISSION DATE: SURGEON: GISELA ALBERT MD DATE OF OPERATION: 05/04/2020 PREOPERATIVE DIAGNOSES: History of a recurrent tubulovillous adenoma with low-grade atypia at the hepatic flexure, which has been tattooed. POSTOPERATIVE DIAGNOSES: History of a recurrent tubulovillous adenoma with low-grade atypia at the hepatic flexure, which has been tattooed, with questionable regrowth of the polyp at this site, which was easily identifiable. PROCEDURES: 1. Total colonoscopy to cecum. 2. Polypectomy utilizing the argon plasma cotton stripper. 3. Placement of 5 endoscopic clips for tissue reinforcement. SURGEON: Gisela Albert MD BREAKER HAND: None. BLOOD LOSS: Minimal. ANESTHESIA: IV sedation. COMPLICATIONS: None. The risks, possible complications and alternatives to the procedure were explained to the patient. He elects to proceed. A consent form was signed. ENDOSCOPIC COURSE: The patient was conveyed to endoscopy suite electively on 05/04/2020. IV sedation was induced by the anesthesia staff. The patient was placed in the Bowser position. A digital rectal examination was performed. The prostate was symmetric, of normal size and without nodules. A colonoscope was inserted through the anus. It was easily advanced to the cecum. The prep was adequate. The appendiceal orifice and ileocecal valve were identified. I slowly withdrew the endoscope. A combination of normal imaging and narrow band imaging were utilized. At the hepatic flexure, a tattoo was noted. A scar on a fold that represented the prior polypectomy site was noted as well. Multiple cold endoscopic biopsies were obtained. A few of these at the center of the scar were firm. The argon plasma cotton stripper utilizing the right colon setting in the forced mode was utilized for hemostasis and tissue ablation. Tissue reinforcement was then performed utilizing 5 Endoclips in a row. There was no evidence of perforation. No evidence of persistent bleeding. I slowly withdrew the endoscope. I dragged the folds. The pullback was greater than a 13-minute pullback. A retroflexed view was obtained in the rectum. This revealed enlarged internal hemorrhoids. I then unretroflexed the scope and removed it under direct vision. I will see the patient in my office in 2-3 weeks. I will plan for his next colonoscopy to take place in 2 years. OPERATIVE REPORT [id number] DEIDRE VILLAGOMEZ TRANSINT:[id number] Voice Confirmation ID: [id number] DOCUMENT ID: [id number] GISELA ALBERT MD CC: BLANCHE BUENO MD, DUSTIN PFEIFFER MD and SOLO VEGA [id number] DICTATION DATE: 05/04/20920 VALIDATION ARCHITECT: 05/04/20 1026 [facility] 05/04/20 [address] [place] [address]
[~2020-05-04 05:39] MED LIST changes: +LIPITOR10 MG PO
[2020-05-04 06:03] LABS: HEMATOCRIT 45.7 % (42.0-54.0); HEMOGLOBIN 15.3 g/dL (13.5-17.5); MCH 29.1 pg (26.0-34.0); MCHC 33.5 g/dL (31.0-37.0); MEAN PLATELET VOLUME 8.4 fL (7.4-10.4); RBC 5.25 10x6/uL (4.20-6.10); RDW 12.8 % (11.5-14.5); WBC 6.8 10x3/uL (4.8-10.8)
[2020-05-04 06:20] VITALS: BP 132/77; Ht 181.6 cm; Wt 85.0 kg
== END 2020-05-04 10:28 | disposition home or self-care (01) ==
LOC: D.OPS 05:39
PROVIDERS: Anesthesiology; ATTEND Surgery
DX: Z86.010 Personal history of colon polyps (principal)